=== PATIENT | female | born 1985 | race Caucasian/White ===

== ENCOUNTER → 2016-11-14 | Outpatient (CLI) | payer OTHER ==
--- NOTE | 2016-11-14 19:22 | Diagnostic Imaging Report ---
INDICATION: patient with hypothyroidism. OB sonography performed in routine fashion with transabdominal views and compared to prior study 08/23/16. FINDINGS: Single live intrauterine fetus is seen measuring at 21 weeks zero days in size with heart rate of 140 beats per minute. Fetus is in breech presentation. Placenta is anterior with no evidence of previa. Amniotic fluid index is normal at 13.8 cm. survey demonstrated no detectable abnormalities, although the aorta and cisterna magna and cerebellar regions are difficult to image due to position. Remaining structures visualized were unremarkable. Cervical length is normal at 3.8 cm. IMPRESSION: Single live intrauterine fetus with normal interval growth since the previous study and sonographic EDC of 03/27/17. There were no detectable abnormalities, although the portions of the anatomy were not visualized as above. Consider followup as clinically warranted. Dictated by: Dictated on workstation # [id number]
== END ==
LOC: RAD 14:52
PROVIDERS: ATTEND Obstetrics & Gynecology
DX: Z34.82 Encounter for supervision of other normal pregnancy, second trimester (principal); E07.89 Other specified disorders of thyroid
CPT/HCPCS: 76805

== ENCOUNTER → 2016-12-17 | Outpatient (CLI) | payer OTHER ==
[2016-12-17 11:16] LABS: BASOPHILS % (AUTO) 0 % (0-2); EOSINOPHILS # (AUTO) 0.1 10^3uL; EOSINOPHILS % (AUTO) 1 % (0-4); LYMPHOCYTES # (AUTO) 2.8 X10^3; MEAN CORPUSCULAR VOLUME 91 FL (80-100); MONOCYTES # (AUTO) 0.9 X10^3; MONOCYTES % (AUTO) 7 % (3-11); NEUTROPHILS # (AUTO) 9.1 X10^3; NEUTROPHILS % (AUTO) 70 % (51-67); PLATELET COUNT 275 10^3uL (150-450); WHITE BLOOD COUNT 13.02 10^3uL (4.0-11.0)
[2016-12-17 11:18] LABS: MEAN CORPUSCULAR HEMOGLOBIN 31.8 PG (26.0-34.0)
== END ==
LOC: LAB 11:03
PROVIDERS: ATTEND Obstetrics & Gynecology
DX: Z86.32 Personal history of gestational diabetes (principal); Z34.82 Encounter for supervision of other normal pregnancy, second trimester; E07.89 Other specified disorders of thyroid
CPT/HCPCS: 36415; 82947; 82950; 84443; 85025

== ENCOUNTER → 2017-02-08 | Outpatient (CLI) | payer OTHER | LOC: LAB 09:58 | PROVIDERS: ATTEND Obstetrics & Gynecology | DX: E07.89 Other specified disorders of thyroid (principal); Z34.83 Encounter for supervision of other normal pregnancy, third trimester | CPT/HCPCS: 36415; 84439; 84443 ==

== ENCOUNTER → 2017-02-28 | Outpatient (REF) | payer OTHER | LOC: LAB 16:35 | PROVIDERS: ATTEND Obstetrics & Gynecology | DX: Z34.83 Encounter for supervision of other normal pregnancy, third trimester (principal) | CPT/HCPCS: 87653 ==

== ENCOUNTER 2017-03-13 14:19 | Inpatient (IN) | payer OTHER ==
[2017-03-13] VITALS (24 sets, daily range): BP systolic 122–199; BP diastolic 61–101
[~2017-03-13] VITALS: Ht 188 cm; Wt 144.4 kg
--- OUTSIDE RECORDS SUMMARY | 2017-03-13 14:23 | XMS REPORT | Continuity of Care Document ---
Author Author [facility] Address Unknown Phone Unavailable Allergies Medications Problems Date Dx Coded Attending Type Code Diagnosis Diagnosed By 12/23/2014 WILJAN COLES L SPOUTING INSTALLER Ot 959.7 08/24/2015 WILGERS JAN L SPOUTING INSTALLER Ot J02.9 04/16/2016 WILGERSJAN L SPOUTING INSTALLER Ot 959.7 LOWER LEG INJURY NOS 04/17/2016 BENJAMIN DUMONT MD Ot E66.01 MORBID (SEVERE) OBESITY DUE TO EXCESS CA 04/17/2016 BENJAMIN DUMONT MD Ot Z13.6 ENCOUNTER FOR SCREENING FOR CARDIOVASCUL 05/25/2016 WILJAN COLES SPOUTING INSTALLER Ot 959.7 LOWER LEG INJURY NOS 05/25/2016 BENJAMIN DUMONT MD Ot E66.01 MORBID (SEVERE) OBESITY DUE TO EXCESS CA 05/25/2016 BENJAMIN DUMONT MD Ot Z13.6 ENCOUNTER FOR SCREENING FOR CARDIOVASCUL 05/31/2016 BENJAMIN DUMONT MD Ot E03.9 HYPOTHYROIDISM, UNSPECIFIED 06/22/2016 BENJAMIN DUMONT MD Ot E03.9 HYPOTHYROIDISM, UNSPECIFIED 07/30/2016 JAN SAMANO SPOUTING INSTALLER Ot 959.7 LOWER LEG INJURY NOS 07/30/2016 BENJAMIN DUMONT MD Ot E66.01 MORBID (SEVERE) OBESITY DUE TO EXCESS CA 07/30/2016 BENJAMIN DUMONT MD Ot Z13.6 ENCOUNTER FOR SCREENING FOR CARDIOVASCUL 07/30/2016 BENJAMIN DUMONT MD Ot E03.9 HYPOTHYROIDISM, UNSPECIFIED 08/02/2016 BENJAMIN DUMONT MD Ot E03.9 HYPOTHYROIDISM, UNSPECIFIED 08/20/2016 BENJAMIN DUMONT MD Ot E03.9 HYPOTHYROIDISM, UNSPECIFIED 08/22/2016 BENJAMIN DUMONT MD Ot E03.9 HYPOTHYROIDISM, UNSPECIFIED 08/22/2016 GENO LIN MD Ot E07.89 OTHER SPECIFIED DISORDERS OF THYROID 08/22/2016 GENO LIN MD Ot O36.80X0 W INCONCLUSIVE VIABILITY 08/22/2016 GENO LIN MD Ot Z86.32 PERSONAL HISTORY OF GESTATIONAL DIABETES 08/24/2016 GENO LIN MD Ot E07.89 OTHER SPECIFIED DISORDERS OF THYROID 08/24/2016 GENO LIN MD Ot O36.80X0 W INCONCLUSIVE VIABILITY 08/24/2016 GENO LIN MD Ot Z86.32 PERSONAL HISTORY OF GESTATIONAL DIABETES 08/28/2016 GENO LIN MD Ot E03.9 HYPOTHYROIDISM, UNSPECIFIED 08/28/2016 GENO LIN MD Ot E07.89 OTHER SPECIFIED DISORDERS OF THYROID 08/28/2016 GENO LIN MD Ot O09.621 SUPERVISION OF YOUNG MULTIGRAVIDA, FIRST 08/28/2016 GENO LIN MD Ot O36.80X0 W INCONCLUSIVE VIABILITY 08/28/2016 GENO LIN MD Ot Z86.32 PERSONAL HISTORY OF GESTATIONAL DIABETES 08/30/2016 JAN SAMANO SPOUTING INSTALLER Ot 959.7 LOWER LEG INJURY NOS 08/30/2016 TIM ADRIAN, BENJAMIN Trejo Ot E66.01 MORBID (SEVERE) OBESITY DUE TO EXCESS CA 08/30/2016 BENJAMIN DUMONT MD Ot Z13.6 ENCOUNTER FOR SCREENING FOR CARDIOVASCUL 08/30/2016 BENJAMIN DUMONT MD Ot E03.9 HYPOTHYROIDISM, UNSPECIFIED 08/30/2016 BENJAMIN DUMONT MD Ot E03.9 HYPOTHYROIDISM, UNSPECIFIED 08/30/2016 GENO LIN MD Ot E07.89 OTHER SPECIFIED DISORDERS OF THYROID 08/30/2016 GENO LIN MD Ot O36.80X0 W INCONCLUSIVE VIABILITY 08/30/2016 GENO LIN MD Ot Z3A.08 8 WEEKS GESTATION OF 08/30/2016 GENO LIN MD Ot Z86.32 PERSONAL HISTORY OF GESTATIONAL DIABETES 08/30/2016 GENO LIN MD Ot E07.89 OTHER SPECIFIED DISORDERS OF THYROID 08/30/2016 GENO LIN MD Ot O36.80X0 W INCONCLUSIVE VIABILITY 08/30/2016 GENO LIN MD Ot Z86.32 PERSONAL HISTORY OF GESTATIONAL DIABETES 08/30/2016 GENO LIN MD Ot E03.9 HYPOTHYROIDISM, UNSPECIFIED 08/30/2016 GENO LIN MD Ot E07.89 OTHER SPECIFIED DISORDERS OF THYROID 08/30/2016 GENO LIN MD Ot O09.621 SUPERVISION OF YOUNG MULTIGRAVIDA, FIRST 08/30/2016 GENO LIN MD Ot O36.80X0 W INCONCLUSIVE VIABILITY 08/30/2016 GENO LIN MD Ot Z86.32 PERSONAL HISTORY OF GESTATIONAL DIABETES 09/03/2016 JAN SAMANO SPOUTING INSTALLER Ot 959.7 LOWER LEG INJURY NOS 09/03/2016 TIM ADRIAN, BENJAMIN Trejo Ot E66.01 MORBID (SEVERE) OBESITY DUE TO EXCESS CA 09/03/2016 BENJAMIN DUMONT MD Ot Z13.6 ENCOUNTER FOR SCREENING FOR CARDIOVASCUL 09/03/2016 BENJAMIN DUMONT MD Ot E03.9 HYPOTHYROIDISM, UNSPECIFIED 09/03/2016 BENJAMIN DUMONT MD Ot E03.9 HYPOTHYROIDISM, UNSPECIFIED 09/03/2016 GENO LIN MD Ot E07.89 OTHER SPECIFIED DISORDERS OF THYROID 09/03/2016 GENO LIN MD Ot O36.80X0 W INCONCLUSIVE VIABILITY 09/03/2016 GENO LIN MD Ot Z3A.08 8 WEEKS GESTATION OF 09/03/2016 GENO LIN MD Ot Z86.32 PERSONAL HISTORY OF GESTATIONAL DIABETES 09/03/2016 GENO LIN MD Ot E07.89 OTHER SPECIFIED DISORDERS OF THYROID 09/03/2016 GENO LIN MD Ot O36.80X0 W INCONCLUSIVE VIABILITY 09/03/2016 GENO LIN MD Ot Z86.32 PERSONAL HISTORY OF GESTATIONAL DIABETES 09/03/2016 GENO LIN MD Ot E03.9 HYPOTHYROIDISM, UNSPECIFIED 09/03/2016 GENO LIN MD Ot E07.89 OTHER SPECIFIED DISORDERS OF THYROID 09/03/2016 GENO LIN MD Ot O09.621 SUPERVISION OF YOUNG MULTIGRAVIDA, FIRST 09/03/2016 GENO LIN MD Ot O36.80X0 W INCONCLUSIVE VIABILITY 09/03/2016 GENO LIN MD Ot Z86.32 PERSONAL HISTORY OF GESTATIONAL DIABETES 09/03/2016 GENO LIN MD Ot E07.89 OTHER SPECIFIED DISORDERS OF THYROID 09/03/2016 GENO LIN MD Ot O36.80X0 W INCONCLUSIVE VIABILITY 09/03/2016 GENO LIN MD Ot Z86.32 PERSONAL HISTORY OF GESTATIONAL DIABETES 09/03/2016 JAN SAMANO SPOUTING INSTALLER Ot 959.7 LOWER LEG INJURY NOS 09/03/2016 TIM ADRIAN, BENJAMIN Trejo Ot E66.01 MORBID (SEVERE) OBESITY DUE TO EXCESS CA 09/03/2016 BENJAMIN DUMONT MD Ot Z13.6 ENCOUNTER FOR SCREENING FOR CARDIOVASCUL 09/03/2016 BENJAMIN DUMONT MD Ot E03.9 HYPOTHYROIDISM, UNSPECIFIED 09/03/2016 BENJAMIN DUMONT MD Ot E03.9 HYPOTHYROIDISM, UNSPECIFIED 09/03/2016 GENO LIN MD Ot E07.89 OTHER SPECIFIED DISORDERS OF THYROID 09/03/2016 GENO LIN MD Ot O36.80X0 W INCONCLUSIVE VIABILITY 09/03/2016 GENO LIN MD Ot Z3A.08 8 WEEKS GESTATION OF 09/03/2016 GENO LIN MD Ot Z86.32 PERSONAL HISTORY OF GESTATIONAL DIABETES 09/03/2016 GENO LIN MD Ot E07.89 OTHER SPECIFIED DISORDERS OF THYROID 09/03/2016 GENO LIN MD Ot O36.80X0 W INCONCLUSIVE VIABILITY 09/03/2016 GENO LIN MD Ot Z86.32 PERSONAL HISTORY OF GESTATIONAL DIABETES 09/03/2016 GENO LIN MD Ot E03.9 HYPOTHYROIDISM, UNSPECIFIED 09/03/2016 GENO LIN MD Ot E07.89 OTHER SPECIFIED DISORDERS OF THYROID 09/03/2016 GENO LIN MD Ot O09.621 SUPERVISION OF YOUNG MULTIGRAVIDA, FIRST 09/03/2016 GENO LIN MD Ot O36.80X0 W INCONCLUSIVE VIABILITY 09/03/2016 GENO LIN MD Ot Z86.32 PERSONAL HISTORY OF GESTATIONAL DIABETES 09/12/2016 HESKETT MD, GENO E Ot E03.9 HYPOTHYROIDISM, UNSPECIFIED 09/12/2016 GENO LIN MD Ot E07.89 OTHER SPECIFIED DISORDERS OF THYROID 09/12/2016 GENO LIN MD Ot O09.621 SUPERVISION OF YOUNG MULTIGRAVIDA, FIRST 09/12/2016 GENO LIN MD Ot O36.80X0 W INCONCLUSIVE VIABILITY 09/12/2016 GENO LIN MD Ot Z86.32 PERSONAL HISTORY OF GESTATIONAL DIABETES 09/13/2016 GENO LIN MD Ot E07.89 OTHER SPECIFIED DISORDERS OF THYROID 09/13/2016 GENO LIN MD Ot O36.80X0 W INCONCLUSIVE VIABILITY 09/13/2016 GENO LIN MD Ot Z86.32 PERSONAL HISTORY OF GESTATIONAL DIABETES 09/25/2016 GENO LIN MD Ot E07.89 OTHER SPECIFIED DISORDERS OF THYROID 09/25/2016 GENO LIN MD Ot O36.80X0 W INCONCLUSIVE VIABILITY 09/25/2016 GENO LIN MD Ot Z3A.08 8 WEEKS GESTATION OF 09/25/2016 GENO LIN MD Ot Z86.32 PERSONAL HISTORY OF GESTATIONAL DIABETES 09/25/2016 GENO LIN MD Ot E03.9 HYPOTHYROIDISM, UNSPECIFIED 09/25/2016 GENO LIN MD Ot E07.89 OTHER SPECIFIED DISORDERS OF THYROID 09/25/2016 GENO LIN MD Ot O09.621 SUPERVISION OF YOUNG MULTIGRAVIDA, FIRST 09/25/2016 GENO LIN MD Ot O36.80X0 W INCONCLUSIVE VIABILITY 09/25/2016 GENO LIN MD Ot Z86.32 PERSONAL HISTORY OF GESTATIONAL DIABETES 10/19/2016 GENO LIN MD Ot E07.89 OTHER SPECIFIED DISORDERS OF THYROID 10/19/2016 GENO LIN MD Ot Z34.82 ENCOUNTER FOR SUPRVSN OF NORMAL PREGNANC 10/23/2016 GENO LIN MD Ot E07.89 OTHER SPECIFIED DISORDERS OF THYROID 10/23/2016 GENO LIN MD Ot Z34.82 ENCOUNTER FOR SUPRVSN OF NORMAL PREGNANC 11/15/2016 GENO LIN MD Ot E07.89 OTHER SPECIFIED DISORDERS OF THYROID 11/15/2016 GENO LIN MD Ot Z34.82 ENCOUNTER FOR SUPRVSN OF NORMAL PREGNANC 11/20/2016 GENO LIN MD Ot E07.89 OTHER SPECIFIED DISORDERS OF THYROID 11/20/2016 GENO LIN MD Ot Z34.82 ENCOUNTER FOR SUPRVSN OF NORMAL PREGNANC 12/04/2016 GENO LIN MD Ot E07.89 OTHER SPECIFIED DISORDERS OF THYROID 12/04/2016 GENO LIN MD Ot Z34.82 ENCOUNTER FOR SUPRVSN OF NORMAL PREGNANC 12/20/2016 GENO LIN MD Ot E07.89 OTHER SPECIFIED DISORDERS OF THYROID 12/20/2016 GENO LIN MD Ot Z34.82 ENCOUNTER FOR SUPRVSN OF NORMAL PREGNANC 12/20/2016 GENO LIN MD Ot Z86.32 PERSONAL HISTORY OF GESTATIONAL DIABETES 12/22/2016 JAN SAMANO SPOUTING INSTALLER Ot J02.9 ACUTE PHARYNGITIS, UNSPECIFIED 01/09/2017 GENO LIN MD Ot E07.89 OTHER SPECIFIED DISORDERS OF THYROID 01/09/2017 GENO LIN MD Ot Z34.82 ENCOUNTER FOR SUPRVSN OF NORMAL PREGNANC 01/09/2017 GENO LIN MD Ot Z86.32 PERSONAL HISTORY OF GESTATIONAL DIABETES 01/15/2017 JAN SAMANO SPOUTING INSTALLER Ot J02.9 ACUTE PHARYNGITIS, UNSPECIFIED 02/16/2017 GENO LIN MD Ot E07.89 OTHER SPECIFIED DISORDERS OF THYROID 02/16/2017 GENO LIN MD Ot Z34.83 ENCOUNTER FOR SUPRVSN OF NORMAL PREGNANC 03/05/2017 GENO LIN MD Ot Z34.83 ENCOUNTER FOR SUPRVSN OF NORMAL PREGNANC 03/06/2017 GENO LIN MD Ot E07.89 OTHER SPECIFIED DISORDERS OF THYROID 03/06/2017 GENO LIN MD Ot Z34.83 ENCOUNTER FOR SUPRVSN OF NORMAL PREGNANC Procedures Results Test Result Range THYROID STIMULATING HORMONE* - 05/25/16 11:05 THYROID STIMULATING HORMONE 0.17 0.46- 4.68 THYROID STIMULATING HORMONE* - 07/30/16 08:18 THYROID STIMULATING HORMONE 9.74 0.46- 4.68 GC-CHLAMYDIA DNA Screen - 08/16/16 15:00 GC-CHLAMYDIA DNA Screen SHIELDS FOR RESULTS: * - NEW RESULT - RESULT WAS MODIFIED AFTER FINAL STATUS SET PROTEIN URINE 24 HOUR - 08/21/16 07:00 24 hour urine specimen volume measurement 1500 24 hour urine protein measurement (mass/volume) TNP 42-225 Timed urine protein mass concentration measurement < 0-11.90 Complete blood count (CBC) with automated white blood cell (WBC) differential - 08/22/16 08:34 Blood automated leukocyte count 8.09 4.0 -11.0 Erythrocytes 4.52 4.00-5.00 12.0-16.0;g/dL 13.8 12.0-15.5 Hematocrit 39.20 35.00-45.00 Automated erythrocyte mean corpuscular volume 87 80-100 Mean corpuscular hemoglobin (MCH) determination 30.5 26.0-34.0 Automated erythrocyte mean corpuscular hemoglobin concentration measurement ( mass/volume) 35.2 31.0-37.0 Erythrocyte distribution width 13.2 11.8 -15.6 Automated blood platelet count 264 150- 450 Automated blood platelet mean volume measurement 10.3 6.0-9.5 Automated neutrophil percentage 64 51- 67 Lymphocytes/100 leukocytes 24 20-46 Automated monocyte percentage 10 3-11 Eosinophil count auto 2 0-4 Automated basophil percentage 0 0-2 Automated blood neutrophil count 5.1 Blood lymphocytes count (number/volume) 1.9 Automated blood monocyte count 0.8 Blood absolute eosinophil count 0.2 Basophils 0.0 Prothrombin time (PT) with international normalized ratio (INR) - 08/22/16 08: 34 Prothrombin time (PT) in platelet poor plasma by coagulation assay 11.8 10.0-12.5 INR 1.1 0.8-1.4 Activated partial thromboplastin time (aPTT) in platelet poor plasma bycoagulation assay - 08/22/16 08:34 Activated partial thromboplastin time (aPTT) in platelet poor plasma bycoagulation assay 26.3 26.3-36.8 Comprehensive metabolic panel - 08/22/16 08:34 Sodium measurement 89 70-110 Carbon dioxide measurement 23 22-29 Serum or plasma anion gap 15.7 3-15 BLOOD UREA NITROGEN 10 7-18 CREATININE SERUM 0.64 0.6-1.2 Brucella species antibody panel (IgG, IgM) 16 10-20 Estimated glomerular filtration rate (GFR) 131.8 Estimated glomerular filtration rate (GFR) non- 109.0 OSMOLALITY,CALCULATED 261 280-300 CALCIUM 9.1 8.8-10.8 Calculated ionized calcium measurement 3.9 3.8-4.6 BILIRUBIN,TOTAL 0.5 0.1-1.0 Serum or plasma alkaline phosphatase measurement 74 38-126 ASPARTATE AMINO TRANSFERASE 20 15-37 ALANINE AMINOTRANSFERASE 57 30-65 Serum or plasma total protein measurement 7.5 6.4-8.5 Serum or plasma albumin measurement 3.8 3.4-5.0 Serum or plasma albumin/globulin mass ratio 1.027 1.1-1.8 THYROID STIMULATING HORMONE* - 08/22/16 08:34 THYROID STIMULATING HORMONE 3.79 0.46- 4.68 FREE T4 - 08/22/16 08:34 FREE T4 1.08 0.78-2.19 HIV 1 antibody detection by rapid immunoassay - 08/22/16 08:34 HIV 1 antibody detection by rapid immunoassay Negative Negative HIV 1+2 Ab+HIV1 p24 Ag - 08/22/16 08:34 HIV 1+2 Ab+HIV1 p24 Ag Negative Negative Internal QC - 08/22/16 08:34 Internal QC OK OK Blood type T Indirect antibody screen panel - 08/22/16 08:34 ABO group OP Is MOM an RhIG candidate? NO Blood group antibody screen NEGATIVE Serum or plasma hepatitis B virus core IgM antibody detection by immunoassay - 08/22/16 08:34 Serum or plasma hepatitis B virus core IgM antibody detection by immunoassay Negative Qualitative serum rapid plasma reagin (RPR) test - 08/22/16 08:34 Qualitative serum rapid plasma reagin (RPR) test Non- reactive General health panel - 08/22/16 08:34 Serum rubella virus IgG antibody assay (units/volume) 2.13 >1.09 MMRV INTERPRETATION - UA (urinalysis) - 08/22/16 08:40 COLLECTION METHOD CLEAN CATCH Color of urine by auto Yellow Urine appearance determination Clear Urine pH measurement by automated test strip 6.0 5.0 - 8.0 Specific gravity of urine by automated test strip 1.020 1.005-1.030 PROTEIN, URINE Negative Urine glucose detection by automated test strip Negative Negative Urine erythrocytes count by automated test strip (number/volume) Trace-intact Negative Urine ketones detection by automated test strip Negative Negative NITRITE,URINE Negative Negative Urine total bilirubin detection by automated test strip Negative Negative Urine urobilinogen measurement by automated test strip (mass/volume) 0.2 0.2-1.0 Urine leukocyte esterase detection by dipstick Trace Negative Microscopic examination of urine - 08/22/16 08:40 Urine volume measurement 12 mL Urine erythrocytes detection by automated method 2-5 Automated urine sediment leukocyte count by microscopy (number/high power field ) Bacteria 2+ Negative SQUAMOUS EPITHELIAL CELL,UR 20-50 Urine culture - 08/22/16 08:40 Urine culture SHIELDS FOR RESULTS: * - NEW RESULT - RESULT WAS MODIFIED AFTER FINAL STATUS SET QUAD SCREEN MATERNAL - 10/11/16 14:31 Quad Calculated age at ANTWAN 31 years Quad Maternal Weight Pounds 271 Quad Insulin Depend Diabetes None Quad Black Race non-Black Quad ANTWAN by LMP 03/25/2017 Quad GA on collection by date 16,3 Quad GA used in Risk Estimate Dates estimate Quad AFP SEE BELOW Quad uE3 SEE BELOW Quad hCG Total SEE BELOW Quad Inhibin SEE BELOW Quad Down Syndrome Risk est 1/780 Quad Down Syndrome Age Risk 1/690 Quad Trisomy 18 Screen Risk < 1/100 Quad Interpretation SEE BELOW Quad Recommended Follow up None. Quad General Test Information SEE BELOW Quad Other Information Initial testing Complete blood count (CBC) with automated white blood cell (WBC) differential - 12/17/16 11:08 Blood automated leukocyte count 13.02 4.0-11.0 Erythrocytes 4.06 4.00-5.00 12.0-16.0;g/dL 12.9 12.0-15.5 Hematocrit 36.90 35.00-45.00 Automated erythrocyte mean corpuscular volume 91 80-100 Mean corpuscular hemoglobin (MCH) determination 31.8 26.0-34.0 Automated erythrocyte mean corpuscular hemoglobin concentration measurement ( mass/volume) 35.0 31.0-37.0 Erythrocyte distribution width 13.0 11.8 -15.6 Automated blood platelet count 275 150- 450 Automated blood platelet mean volume measurement 10.0 6.0-9.5 Automated neutrophil percentage 70 51- 67 Lymphocytes/100 leukocytes 21 20-46 Automated monocyte percentage 7 3-11 Eosinophil count auto 1 0-4 Automated basophil percentage 0 0-2 Automated blood neutrophil count 9.1 Blood lymphocytes count (number/volume) 2.8 Automated blood monocyte count 0.9 Blood absolute eosinophil count 0.1 Basophils 0.0 THYROID STIMULATING HORMONE* - 12/17/16 11:08 THYROID STIMULATING HORMONE 1.54 0.46- 4.68 GLUCOSE TOLERANCE 1 HR, GEST - 12/17/16 11:08 GLUCOSE,FASTING 103 70-110 GLUCOSE,1H PP 50GM DOSE 100 70-140 THYROID STIMULATING HORMONE* - 02/08/17 10:12 THYROID STIMULATING HORMONE 0.70 0.46- 4.68 FREE T4 - 02/08/17 10:12 FREE T4 0.63 0.78-2.19 Streptococcus agalactiae DNA - 02/28/17 13:38 Streptococcus agalactiae DNA SHIELDS FOR RESULTS: * - NEW RESULT - RESULT WAS MODIFIED AFTER FINAL STATUS SET Encounters ACCT No. Visit Date/Time Discharge Status Pt. Type Provider Facility Loc./Unit Complaint [id number] 08/08/2015 11:08:00 2014 23:59:59 CLS Outpatient [facility] LAB LAB DROP OFF [facility] [id number] 12/01/2014 10:11:00 2014 23:59:59 [facility] Outpatient [facility] RAD [id number] 02/28/2017 16:35:00 ACT Outpatient DELIA ADRIAN [facility] LAB DROP OFF FROM [facility] [id number] 02/08/2017 09:58:00 ACT Outpatient DELIA ADRIAN [facility] LAB [id number] 12/17/2016 11:03:00 ACT Outpatient DELIA ADRIAN [facility] LAB [id number] 11/14/2016 14:52:00 ACT Outpatient DELIA ADRIAN [facility] RAD HYPOTHYROID, [id number] 10/11/2016 14:29:00 ACT Outpatient DELIA ADRIAN [facility] LAB [id number] 08/23/2016 09:26:00 ACT Outpatient DELIA ADRIAN [facility] RAD O36.80X0 UNCERTAIN VIABILITY; [id number] 08/22/2016 08:19:00 ACT Outpatient DELIA ADRIAN, [facility] LAB [id number] 08/16/2016 17:20:00 ACT Outpatient DELIA ADRIAN, [facility] LAB DROP OFF EDGARD LIN [id number] 07/30/2016 08:09:00 ACT Outpatient TIM ADRIAN, [facility] LAB [id number] 05/25/2016 11:37:00 ACT Outpatient TIM ADRIAN, [facility] LAB [id number] 04/12/2016 12:46:00 ACT Outpatient TIM ADRIAN, [facility] LAB LAB DROP OFF DR DUMONT
[2017-03-13] MEDS ORDERED: CALCIUM CARBONATE CHEWABLE 300 MG (TUMS) TABLET PO PRN (14:40)
[2017-03-13] MEDS ORDERED: NS FLUSH 3 ML PRN IV (15:00)
[2017-03-13] MEDS ORDERED: NS FLUSH 10 ML PRN IV (15:00)
[2017-03-13 15:12] LABS: BASOPHILS % (AUTO) 0 % (0-2); EOSINOPHILS # (AUTO) 0.1 10^3uL; EOSINOPHILS % (AUTO) 1 % (0-4); LYMPHOCYTES # (AUTO) 2.3 X10^3; MEAN CORPUSCULAR HEMOGLOBIN 30.4 PG (26.0-34.0); MEAN CORPUSCULAR HGB CONC 33.2 g/dL (31.0-37.0); MEAN CORPUSCULAR VOLUME 92 FL (80-100); MEAN PLATELET VOLUME 11.2 FL (6.0-9.5); MONOCYTES # (AUTO) 0.9 X10^3; MONOCYTES % (AUTO) 8 % (3-11); NEUTROPHILS # (AUTO) 7.8 X10^3; NEUTROPHILS % (AUTO) 70 % (51-67); PLATELET COUNT 228 10^3uL (150-450)
[2017-03-13 15:24] LABS: ANION GAP 12.2 MEQ/L (3-15); CALCULATED IONIZED CALCIUM 4.2 mg/dL (3.8-4.6); TOTAL PROTEIN 6.2 g/dL (6.4-8.5)
[2017-03-13] MEDS ORDERED: OXYTOCIN INJ 20 UNIT in NS 1000ml 1,000 ML IV SCH (16:25)
--- NOTE | 2017-03-13 16:37 | History and Physical (E) ---
History & Physical (OB) Subjective: CC: elevated blood pressure HPI: 31 y/o at 38+2 WGA with elevated blood pressures today. She reports normal movement, no LOF/VB/CTX, no AMADOR/visual changes or RUQ pain. Her has only been complicated by morbid obesity and hypothyroidism. GBS negative. PNC:Since 12 weeks, first trimester U/S confirmed dating. OB Hx:FAVD x1 at 38 WGA, gestational hypertension and perhaps mild preeclampsia. PMHx:hypothyroidism on synthroid 100mcg daily. PSHx:none Allergies: Coded Allergies: No Known Drug Allergies (Unverified , 03/13/17) Objective: Vital Signs Date Time Temp Pulse Resp B/P Pulse Ox O2 Delivery O2 Flow Rate FiO2 03/13/17 15:50 78 150/88 03/13/17 14:35 98.1 20 Laboratory Results Past 24 Hrs 03/13/17 14:55: Activated Partial Thromboplast Time 25.1, Alanine Aminotransferase (ALT/SGPT) 20 , Albumin 3.0, Albumin/Globulin Ratio 0.937, Alkaline Phosphatase 118, Anion Gap 12.2, Aspartate Amino Transf (AST/SGOT) 14, BUN/Creatinine Ratio 17, Basophils # (Auto) 0.0, Basophils (%) (Auto) 0, Blood Urea Nitrogen 9, Calcium Level 8.9, Calcium/Ionized Calcium Ratio 4.2, Calculated Osmolality 268, Carbon Dioxide Level 21, Chloride Level 109, Creatinine 0.54, Eosinophils # (Auto) 0.1 , Eosinophils (%) (Auto) 1, Estimat Glomerular Filtration Rate 160.4, Estimated GFR (Non- 132.6, Fibrinogen 579.0, Glucose Level 123, Hematocrit 37.90, Hemoglobin 12.6, Lactate Dehydrogenase 363, Lymphocytes # ( Auto) 2.3, Lymphocytes (%) (Auto) 20, Mean Corpuscular Hemoglobin 30.4, Mean Corpuscular Hemoglobin Concent 33.2, Mean Corpuscular Volume 92, Mean Platelet Volume 11.2, Monocytes # (Auto) 0.9, Monocytes (%) (Auto) 8, Neutrophils # (Auto ) 7.8, Neutrophils (%) (Auto) 70, Platelet Count 228, Potassium Level 3.7, Prothromb Time International Ratio 0.9, Prothrombin Time 10.3, Red Blood Count 4.14, Red Cell Distribution Width 13.6, Sodium Level 139, Total Bilirubin 0.3, Total Protein 6.2, Uric Acid 2.6, White Blood Count 11.10 General: Alert and oriented, NAD Chest: CTA Abdomen: Gravid Cardiovasular: RRR, No murmur Extremities: No edema FHT's:120, reactive, reassuring Cx:2/50/-3, VTX Amo:none Screenings: Blood type: O Positive, Rubella Immune, RPR non-reactive, HBV Negative, HIV Negative , GBS Unknown. Problems/Plans: (1) Hypothyroidism (2) Gestational [-induced] hypertension without significant proteinuria , third trimester (3) 38 weeks gestation of Gestational hypertension at 38+2 WGA. PIH labs normal. BP range from 140s/80s to 160s/100s, none persistently elevated necessitating treatment yet. GBS-, will start oxytocin induction, anticipate . Additional Copies to: End of Report . GENO LIN MD March 13, 2017 16:37
[2017-03-14] VITALS (42 sets, daily range): BP systolic 122–195; BP diastolic 68–108
--- NOTE | 2017-03-14 02:45 | NUR ---
Dr Costello called and gave a verbal order to continue to increase pitocin to a total of 30u over the course of time. and to call when pt reached SVE of 4cm after epidural
[2017-03-14] MEDS ORDERED: ROPIVACAINE 1% 10 MG/ML (NAROPIN) 20 ML AMPUL ONE (03:01)
[2017-03-14 05:05] LABS: BILIRUBIN,URINE Negative (Negative); CLARITY,URINE Clear; COLOR,URINE Yellow; GLUCOSE, URINE (UA) Negative (Negative); LEUKOCYTE ESTERASE ,URINE Negative (Negative); PH,URINE 6.5 (5.0 - 8.0); UROBILINOGEN,URINE 0.2 mg/dL (0.2-1.0)
--- NOTE | 2017-03-14 09:09 | Progress Note (E) ---
Progress Note Doing great, FHR reactive , reassuring, moderate variability, no decelerations. CTX q3 minutes, epidural in place. VE 4-5/100/-2, VTX. AROM, clear, internal monitoring placed. Continue induction, plan for . GENO LIN MD March 14, 2017 09:09
[2017-03-14] MEDS: OXYTOCIN INJ 20 UNIT in NS 1000ml 1,000 ML IV PRN ×2 (10:48→15:45)
[2017-03-14] MEDS ORDERED: HYDROcodone/APAP 5 MG/325 MG (NORCO) TAB PO PRN (11:10)
[2017-03-14] MEDS ORDERED: LANOLIN OINTMENT 28 GM TUBE TOP PRN (11:10)
[2017-03-14] MEDS ORDERED: M-M-R II (MEASLES,MUMPS,RUBELLA) VACCINE SC SCH (11:10)
--- NOTE | 2017-03-14 11:25 | Vaginal Delivery Summary (E) ---
Vaginal Delivery Summary At 14:19 on 03/13/17 this 31 year old G 2 now P2 presented to the Labor and Delivery Unit at 38&2 weeks gestation. The patient presented for care in the first trimester and ultrasound at that time confirmed dates. This complications: Hypertension Preg- induced Maternal labs: Blood type: O Positive, Hgb , Rubella Immune, RPR non-reactive, HBV Negative, HIV Negative , GBS Negative. Tdap booster received on 2016. She presented for induction due to gestational hypertension. At presentation, she was 2 cm dilated. On 03/14/17 at 0930, AROM was performed by Dr Lin with clear fluid returned. Epidural was placed at 03:16 by Miguel Sarabia CRNA, with good pain relief. Spontaneous vaginal delivery of vertex, viable, vigorous infant male. Intact placenta delivered. Second degree perineal laceration repaired with 3-0 vicryl. No complications. EBL 250cc. GENO LIN MD March 14, 2017 11:25
[2017-03-14] MEDS: IBUPROFEN 600 MG (MOTRIN) TAB PO PRN (15:44)
[2017-03-14] MEDS: DOCUSATE SODIUM 100 MG (COLACE) CAP PO SCH (21:00)
[2017-03-15 00:31] VITALS: BP 154/83
[2017-03-15] MEDS: IBUPROFEN 600 MG (MOTRIN) TAB PO PRN ×3 (03:56→20:59)
[2017-03-15 06:04] LABS: MEAN CORPUSCULAR HEMOGLOBIN 30.7 PG (26.0-34.0); MEAN CORPUSCULAR HGB CONC 33.6 g/dL (31.0-37.0); MEAN PLATELET VOLUME 11.3 FL (6.0-9.5); WHITE BLOOD COUNT 12.34 10^3uL (4.0-11.0)
[2017-03-15 08:00] VITALS: BP 141/85
[2017-03-15] MEDS ORDERED: IBUPROFEN 600 MG (MOTRIN) TAB PO PRN (08:15)
[2017-03-15] MEDS ORDERED: LANOLIN OINTMENT 28 GM TUBE TOP PRN (08:15)
[2017-03-15] MEDS ORDERED: HYDROcodone/APAP 5 MG/325 MG (NORCO) TAB PO PRN (08:15)
--- NOTE | 2017-03-15 08:38 | Progress Note (E) ---
Post- Progress Note Subjective: Doing well PPD#1. A little stiff and sore, but ambulating, tolerating PO, lochia normal. Objective: Vital Signs Date Time Temp Pulse Resp B/P Pulse Ox O2 Delivery O2 Flow Rate FiO2 03/15/17 00:31 85 154/83 03/14/17 19:45 98.7 17 98 I & O 03/14/17 03/15/17 19:00 07:00 Intake Total 2500 ml 993 ml Output Total 800 ml Balance 1700 ml 993 ml Laboratory Tests 03/15/17 05:50: Hematocrit 33.00, Hemoglobin 11.1, Mean Corpuscular Hemoglobin 30.7, Mean Corpuscular Hemoglobin Concent 33.6, Mean Corpuscular Volume 91, Mean Platelet Volume 11.3, Platelet Count 202, Red Blood Count 3.61, Red Cell Distribution Width 13.8, White Blood Count 12.34 Blood type: O Positive, Current Medications Sodium Chloride 1,000 ml @ 125 mls/hr Q8H IV Last administered on 03/14/17 10: 30; Admin Dose 125 MLS/HR; Start 03/13/17 at 14:39 Oxytocin/Sodium Chloride 1,002 ml @ 125 mls/hr Q8H1M PRN IV Last administered on 03/14/17 15:45; Admin Dose 125 MLS/HR; Start 03/13/17 at 14:39 Calcium Carbonate 1-2 tablets PO q4 ho... Q4H PRN PO; Start 03/13/17 at 14:40 Sodium Chloride 3 ml UD PRN IV; Start 03/13/17 at 15:00 Sodium Chloride 10 ml 10 ml UD PRN IV; Start 03/13/17 at 15:00 Oxytocin/Sodium Chloride 1,002 ml @ 0 mls/hr Q0M IV Last administered on 17:07; Admin Dose 0 MLS/HR; Start 03/13/17 at 16:25 Ibuprofen 600 mg Q6H PRN PO Last administered on 03/15/17 03:56; Admin Dose 600 MG; Start 03/14/17 at 11:10 Docusate Sodium 100 mg HS PO Last administered on 03/14/17 21:00; Admin Dose 100 MG; Start 03/14/17 at 21:00 Acetaminophen/ Hydrocodone Bitart Total acetaminophen not... Q4H PRN PO Last administered on 03/14/17t 21:05; Admin Dose 1 TAB; Start 03/14/17 at 11:10 General: Alert and oriented, NAD Abdomen: Soft, non-distended, fundus firm Extremities: No edema Cardiovascular: RRR, No murmur Problems/Plans: (1) Hypothyroidism (2) Gestational [-induced] hypertension without significant proteinuria , third trimester (3) 38 weeks gestation of Comment Doing well PPD#1. Hgb stable at 11.1. BP continue mildly elevated, but not [id number] requiring medication. We will monitor BP and severe features until tomorrow. Synthroid 100mcg daily resumed. Anticipate discharge tomorrow. GENO LIN MD March 15, 2017 08:38
[2017-03-15] MEDS: DOCUSATE SODIUM 100 MG (COLACE) CAP PO SCH (20:59)
[2017-03-15 21:00] VITALS: BP 146/88
[2017-03-15] MEDS ORDERED: DOCUSATE SODIUM 100 MG (COLACE) CAP PO SCH (21:00)
[2017-03-16 08:00] VITALS: BP 172/86
[2017-03-16] MEDS ORDERED: HYDR-3702 PO (10:27)
[2017-03-16] MEDS ORDERED: PNV1TABL9 PO (10:27)
[2017-03-16] MEDS ORDERED: LABE100T PO (10:27)
[2017-03-16] MEDS ORDERED: LVT.1T PO (10:27)
--- NOTE | 2017-03-16 10:31 | Discharge Summary (E) ---
OB Discharge Summary Admit Date/Time March 13, 2017 at 14:19 Discharge Date/Time 03/16/17 Admitting Provider Tyron Lin MD Primary Care Provider Francesco Bledsoe MD Attending Provider Tyron Lin MD Consulting Provider Procedures on 03/14/17 without complication. History and Present Illness See History and Physical for complete details. Hospital Course and Treatment Admitted for induction due to gestational hypertension. Labor progressed normally, and without complication. Blood pressures normalized , but elevated PPD#2. Hgb stable. No severe features of preeclampsia. Initiated labetalol for elevated BP, discharged home PPD#2. Discharge Physicial Exam General Alert and oriented, NAD Abdomen Soft, non-distended, fundus firm Extremities No edema Cardiovascular: RRR, No murmur Discharge Disposition Home Instructions Nothing PV 6 weeks. No lifting >20 lbs 2 weeks. Call with severe pain, fevers , bleeding or intractable headache, vision changes, dyspnea. Diet Regular Follow up Comment F/U Saturday for BP check with Dr. Lin Discharge Diagnosis Problems/Plans: (1) Hypothyroidism (2) Gestational [-induced] hypertension without significant proteinuria , third trimester (3) 38 weeks gestation of Comment Doing great PPD#2, lochia normal, pain controlled. BP elevated today, will initiate labetalol, recheck Saturday. Discharge home today. Copies to: End of Report . TYRON LIN MD March 16, 2017 10:31
[2017-03-16] MEDS ORDERED: LABETALOL 100 MG PO SCH (10:35)
--- NOTE | 2017-03-16 12:00 | NUR ---
Discharge instruction and education reviewed with patient. Patient denies any questions. Discharge papers signed.
--- NOTE | 2017-03-16 12:10 | NUR ---
Patient discharged ambulatory status, accompanied by FOB carrying infant, and this nurse. Patient discharged POV to home.
== END 2017-03-16 12:10 | disposition home or self-care (01) | DRG 775 ==
LOC: OB 14:19
PROVIDERS: ADMIT Obstetrics & Gynecology; ATTEND Obstetrics & Gynecology
PROC: 3E033VJ Introduction of Other Hormone into Peripheral Vein, Percutaneous Approach (ICD-10-PCS; principal; 2017-03-13)
PROC: 10E0XZZ Delivery of Products of Conception, External Approach (ICD-10-PCS; 2017-03-14)
PROC: 0KQM0ZZ Repair Perineum Muscle, Open Approach (ICD-10-PCS; 2017-03-14)
DX: O13.4 Gestational [pregnancy-induced] hypertension without significant proteinuria, complicating childbirth (principal); Z68.41 Body mass index [BMI] 40.0-44.9, adult; O99.214 Obesity complicating childbirth; E66.01 Morbid (severe) obesity due to excess calories; O99.284 Endocrine, nutritional and metabolic diseases complicating childbirth; E03.9 Hypothyroidism, unspecified; O70.1 Second degree perineal laceration during delivery; Z3A.38 38 weeks gestation of pregnancy; Z37.0 Single live birth
CPT/HCPCS: 36415; 80053; 81003; 83615; 84550; 85025; 85027; 85384; 85610; 85730; 86850; 86900; 86901